=== PATIENT | female | born 1990 | race Caucasian/White ===

== ENCOUNTER → 2017-06-08 | Outpatient (CLI) | payer MEDICAID | END | disposition home or self-care (01) | LOC: CFH 15:46 | PROVIDERS: ATTEND Genetic Counselor, MS | DX: M25.551 Pain in right hip (principal) ==

== ENCOUNTER → 2018-10-20 | Outpatient (CLI) | payer MEDICAID | END | disposition home or self-care (01) | LOC: CFH 07:27 | PROVIDERS: ATTEND Nurse Practitioner | DX: M12.88 Other specific arthropathies, not elsewhere classified, other specified site (principal); M54.16 Radiculopathy, lumbar region | CPT/HCPCS: 72148 ==

== ENCOUNTER 2019-04-22 20:41 | Emergency (ER) | payer MEDICAID ==
[~2019-04-22] VITALS: Ht 160 cm; Wt 97.8 kg
[2019-04-22 20:43] VITALS: BP 138/80
[2019-04-22] MEDS ORDERED: ACETAMINOPHEN 325 MG TABLET PO ONE (21:30)
[2019-04-22] MEDS ORDERED: ACETAMINOPHEN 325 MG TABLET ONE (21:30)
== END 2019-04-22 21:58 | disposition home or self-care (01) ==
LOC: ED 21:09
DX: S80.12XA Contusion of left lower leg, initial encounter (principal); X58.XXXA Exposure to other specified factors, initial encounter; Y93.89 Activity, other specified; Y92.009 Unspecified place in unspecified non-institutional (private) residence as the place of occurrence of the external cause; Y99.8 Other external cause status
CPT/HCPCS: 99283

== ENCOUNTER 2021-01-20 13:25 | Outpatient (CLI) | payer MEDICAID ==
[~2021-01-20] VITALS: Ht 160 cm; Wt 98.0 kg
[2021-01-20 14:00] LABS: MICROSCOPIC NOT IND
== END 2021-01-20 15:00 | disposition home or self-care (01) ==
LOC: LDOP 13:25
PROVIDERS: ATTEND Student in an Organized Health Care Education/Training Program
DX: O26.892 Other specified pregnancy related conditions, second trimester (principal); R42 Dizziness and giddiness; F41.9 Anxiety disorder, unspecified; R53.1 Weakness; Z3A.22 22 weeks gestation of pregnancy
CPT/HCPCS: 76817; 81003; 87086; 99211; G0463

== ENCOUNTER 2021-01-20 15:03 | Emergency (ER) | payer MEDICAID ==
[~2021-01-20] VITALS: Ht 160 cm; Wt 98.0 kg
--- NOTE | 2021-01-20 15:33 | NUR ---
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
[2021-01-20 16:24] LABS: BASOPHILS % (AUTO) 1 % (0-1); EOSINOPHILS % (AUTO) 0 % (1-7); LYMPHOCYTES % (AUTO) 18 % (22-44); MEAN PLATELET VOLUME 8.7 fL (7.4-10.4); MONOCYTES % (AUTO) 5 % (2-9); NEUTROPHILS % (AUTO) 77 % (42-75); PLATELET COUNT 191 x10^3/uL (130-400); RED BLOOD COUNT 4.12 x10^6/uL (3.82-5.3)
[2021-01-20 16:32] LABS: ALANINE AMINOTRANSFERASE 18 U/L (12-78); ALBUMIN 2.7 g/dL (3.4-5.0); ANION GAP 10 mmol/L (5-15); CALCIUM 8.5 mg/dL (8.5-10.1); CHLORIDE 111 mmol/L (98-107); CREATININE 0.55 mg/dL (0.55-1.02); MD NO
[2021-01-20 16:37] LABS: ALKALINE PHOSPHATASE 88 U/L (45-117); BILIRUBIN,TOTAL 0.5 mg/dL (0.2-1.0); TOTAL PROTEIN 6.7 g/dL (6.4-8.2); TROPONIN I < 0.015 ng/mL (0.000-0.045)
[2021-01-20 17:23] VITALS: BP 128/73
== END 2021-01-20 17:25 | disposition home or self-care (01) ==
LOC: ED 17:10
DX: O26.899 Other specified pregnancy related conditions, unspecified trimester (principal); R42 Dizziness and giddiness; Z3A.00 Weeks of gestation of pregnancy not specified
CPT/HCPCS: 36415; 80053; 82962; 84484; 85025; 93005; 99284

== ENCOUNTER 2021-04-18 09:34 | Outpatient (CLI) | payer MEDICAID ==
[~2021-04-18] VITALS: Ht 160 cm; Wt 107.7 kg
[2021-04-18 10:29] VITALS: BP 126/82
[2021-04-18 10:34] LABS: BASOPHILS % (AUTO) 1 % (0-1); EOSINOPHILS % (AUTO) 0 % (1-7); LYMPHOCYTES % (AUTO) 16 % (22-44); MEAN CORPUSCULAR HEMOGLOBIN 31.4 pg (27.0-34.8); MEAN CORPUSCULAR HGB CONC 33.8 g/dL (32.4-35.8); MEAN PLATELET VOLUME 9.3 fL (7.4-10.4); MONOCYTES % (AUTO) 4 % (2-9); NEUTROPHILS % (AUTO) 80 % (42-75); PLATELET COUNT 162 x10^3/uL (130-400); RED BLOOD COUNT 4.15 x10^6/uL (3.82-5.3); RED CELL DISTRIBUTION WIDTH 15.3 % (9.6-15.2)
[2021-04-18 10:35] LABS: MD NO
[2021-04-18 10:43] LABS: ALANINE AMINOTRANSFERASE 14 U/L (12-78); ALBUMIN 2.4 g/dL (3.4-5.0); ANION GAP 6 mmol/L (5-15); BILIRUBIN, DIRECT 0.1 mg/dL (0.1-0.2); CALCIUM 8.5 mg/dL (8.5-10.1); CHLORIDE 108 mmol/L (98-107); CREATININE 0.57 mg/dL (0.55-1.02)
[2021-04-18 10:45] LABS: ALKALINE PHOSPHATASE 113 U/L (45-117); BILIRUBIN,TOTAL 0.7 mg/dL (0.2-1.0); TOTAL PROTEIN 6.5 g/dL (6.4-8.2)
[2021-04-18 11:05] LABS: TOTAL PROTEIN,URINE RANDOM < 5 mg/dL (0-12)
[2021-04-18 11:33] LABS: MICROSCOPIC INDICATED
== END 2021-04-18 13:50 | disposition home or self-care (01) ==
LOC: LDOP 09:34
PROVIDERS: ATTEND Student in an Organized Health Care Education/Training Program
DX: O16.3 Unspecified maternal hypertension, third trimester (principal); Z3A.35 35 weeks gestation of pregnancy
CPT/HCPCS: 36415; 59025; 76815; 80053; 81001; 82248; 82570; 84156; 84550; 85025

== ENCOUNTER 2021-04-23 08:46 | Outpatient (CLI) | payer MEDICAID ==
[2021-04-23 09:12] LABS: MICROSCOPIC INDICATED
[2021-04-23 09:29] LABS: BASOPHILS % (AUTO) 1 % (0-1); EOSINOPHILS % (AUTO) 0 % (1-7); LYMPHOCYTES % (AUTO) 17 % (22-44); MD NO; MEAN CORPUSCULAR HEMOGLOBIN 31.6 pg (27.0-34.8); MEAN CORPUSCULAR HGB CONC 34.4 g/dL (32.4-35.8); MEAN PLATELET VOLUME 9.6 fL (7.4-10.4); MONOCYTES % (AUTO) 5 % (2-9); NEUTROPHILS % (AUTO) 78 % (42-75); PLATELET COUNT 149 x10^3/uL (130-400); RED BLOOD COUNT 3.97 x10^6/uL (3.82-5.3); RED CELL DISTRIBUTION WIDTH 15.3 % (9.6-15.2)
[2021-04-23 09:39] LABS: ALBUMIN 2.3 g/dL (3.4-5.0); ANION GAP 7 mmol/L (5-15); CALCIUM 8.9 mg/dL (8.5-10.1); CHLORIDE 110 mmol/L (98-107)
[2021-04-23 09:48] LABS: ALANINE AMINOTRANSFERASE 18 U/L (12-78); ALKALINE PHOSPHATASE 113 U/L (45-117); BILIRUBIN, DIRECT 0.1 mg/dL (0.1-0.2); BILIRUBIN,TOTAL 0.7 mg/dL (0.2-1.0); CREATININE 0.62 mg/dL (0.55-1.02); TOTAL PROTEIN 6.4 g/dL (6.4-8.2)
[2021-04-23 10:56] LABS: CREATININE,URINE RANDOM < 13.00 mg/dL; TOTAL PROTEIN,URINE RANDOM < 5 mg/dL (0-12)
== END 2021-04-23 11:29 | disposition home or self-care (01) ==
LOC: LDOP 08:46
PROVIDERS: ATTEND Student in an Organized Health Care Education/Training Program
DX: O16.3 Unspecified maternal hypertension, third trimester (principal); Z3A.36 36 weeks gestation of pregnancy
CPT/HCPCS: 36415; 59025; 80053; 81001; 82248; 82570; 84156; 84550; 85025

== ENCOUNTER 2021-04-30 12:17 | Inpatient (IN) | payer MEDICAID ==
[~2021-04-30] VITALS: Ht 160 cm; Wt 108.2 kg
[2021-04-30 15:48] VITALS: BP 124/76
[2021-04-30] MEDS ORDERED: SODIUM CITRATE/CITRIC ACID 30 ML UDC PO ONE (16:00)
[2021-04-30] MEDS ORDERED: LACTATED RINGERS 1,000 ML IVBOLUS ONE (16:00)
[2021-04-30] MEDS ORDERED: LACTATED RINGERS 1,000 ML IV SCH (16:00)
[2021-04-30] MEDS ORDERED: METOCLOPRAMIDE 5 MG/ML, 2ML IV ONE (16:00)
[2021-04-30] MEDS ORDERED: CEFAZOLIN 1,000 MG ONE (16:26)
[2021-04-30] MEDS ORDERED: EPINEPHRINE 1 MG/ML, 1ML ONE (16:26)
[2021-04-30] MEDS ORDERED: OXYTOCIN 10 UNITS/ML, 1ML ONE (16:26)
[2021-04-30] MEDS ORDERED: EPHEDRINE 50 MG/ML, 1ML ONE (16:26)
[2021-04-30] MEDS ORDERED: FENTANYL PF 100 MCG/2ML ONE (16:27)
[2021-04-30] MEDS ORDERED: morphine SULFATE 10 MG/ML, 1ML IVPush PRN ×3 (16:30→20:00)
[2021-04-30] MEDS ORDERED: LABETALOL 5MG/ML, 20ML IV PRN ×2 (16:30→17:30)
[2021-04-30] MEDS ORDERED: ACETAMINOPHEN 325 MG TABLET PO PRN ×3 (16:30→20:00)
[2021-04-30] MEDS ORDERED: MEPERIDINE/PF 25MG/0.5ML IVPush PRN ×2 (16:30→17:30)
[2021-04-30] MEDS ORDERED: OXYcodone 5 MG/5 ML ORAL.SOL UDC PO PRN ×2 (16:30→17:30)
[2021-04-30] MEDS ORDERED: EPHEDRINE 50 MG/ML, 1ML IVPush PRN ×2 (16:30→17:30)
[2021-04-30] MEDS ORDERED: ONDANSETRON 2MG/ML, 2ML IVPush PRN ×2 (16:30→17:30)
[2021-04-30] MEDS ORDERED: FENTANYL PF 100 MCG/2ML IV PRN ×2 (16:30→17:30)
[2021-04-30 17:00] VITALS: BP 124/76
[2021-04-30] MEDS ORDERED: OXYTOCIN 30U/ 0.9% NaCL 500ML 500 ML ONE (17:07)
[2021-04-30] MEDS ORDERED: NEWBORN KIT ONE (17:07)
[2021-04-30] MEDS ORDERED: SODIUM CITRATE/CITRIC ACID 15 ML UDC ONE (17:08)
[2021-04-30 17:09] LABS: BASOPHILS % (AUTO) 0 % (0-1); EOSINOPHILS % (AUTO) 0 % (1-7); LYMPHOCYTES % (AUTO) 20 % (22-44); MEAN CORPUSCULAR HEMOGLOBIN 31.5 pg (27.0-34.8); MEAN CORPUSCULAR HGB CONC 34.1 g/dL (32.4-35.8); MONOCYTES % (AUTO) 5 % (2-9); NEUTROPHILS % (AUTO) 75 % (42-75); PLATELET COUNT 149 x10^3/uL (130-400); RED BLOOD COUNT 3.98 x10^6/uL (3.82-5.3); RED CELL DISTRIBUTION WIDTH 15.5 % (9.6-15.2)
[2021-04-30] MEDS: KETOROLAC 30 MG/1 ML IV SCH (19:30)
[2021-04-30] MEDS ORDERED: MISOPROSTOL 200 MCG TABLET PO PRN (20:00)
[2021-04-30] MEDS ORDERED: SIMETHICONE 80 MG CHEW TAB PO PRN (20:00)
[2021-04-30] MEDS ORDERED: BISACODYL 10 MG SUPP PR PRN (20:00)
[2021-04-30] MEDS ORDERED: IBUPROFEN 800 MG TABLET PO PRN (20:00)
[2021-04-30] MEDS ORDERED: OXYcodone/APAP 5/325MG TABLET PO PRN (20:00)
[2021-04-30] MEDS ORDERED: TRANEXAMIC ACID 1,000 MG in SODIUM CHLORIDE 0.9% 100 ML IVPB ONE (20:00)
[2021-04-30] MEDS ORDERED: METOCLOPRAMIDE 5 MG/ML, 2ML IV PRN (20:00)
[2021-04-30] MEDS ORDERED: ONDANSETRON 2MG/ML, 2ML IV PRN (20:00)
[2021-04-30] MEDS ORDERED: CARBOPROST TROMETHAMINE 250 MCG/ML, 1ML IM PRN (20:00)
[2021-04-30] MEDS ORDERED: GLYCERIN ADULT SUPP PR PRN (20:00)
[2021-04-30] MEDS: LACTATED RINGERS 1,000 ML IV SCH ×2 (20:00→20:28)
[2021-04-30] MEDS: OXYTOCIN 30U/ 0.9% NaCL 500ML 500 ML IV SCH (20:29)
[2021-04-30 21:15] VITALS: BP 145/88
[2021-05-01 01:00] VITALS: BP 138/84
[2021-05-01] MEDS: OXYcodone IR 5MG TABLET PO PRN ×4 (01:01→20:37)
[2021-05-01] MEDS: KETOROLAC 30 MG/1 ML IV SCH (01:55)
[2021-05-01 03:25] LABS: BASOPHILS % (AUTO) 0 % (0-1); EOSINOPHILS % (AUTO) 0 % (1-7); LYMPHOCYTES % (AUTO) 18 % (22-44); MEAN CORPUSCULAR HEMOGLOBIN 32.2 pg (27.0-34.8); MEAN CORPUSCULAR HGB CONC 34.5 g/dL (32.4-35.8); MEAN PLATELET VOLUME 9.5 fL (7.4-10.4); MONOCYTES % (AUTO) 5 % (2-9); NEUTROPHILS % (AUTO) 77 % (42-75); PLATELET COUNT 116 x10^3/uL (130-400); RED BLOOD COUNT 3.57 x10^6/uL (3.82-5.3); RED CELL DISTRIBUTION WIDTH 15.3 % (9.6-15.2)
[2021-05-01 03:37] LABS: ALANINE AMINOTRANSFERASE 20 U/L (12-78); ALBUMIN 1.8 g/dL (3.4-5.0); ANION GAP 10 mmol/L (5-15); CALCIUM 7.4 mg/dL (8.5-10.1); CHLORIDE 104 mmol/L (98-107); CREATININE 0.63 mg/dL (0.55-1.02)
[2021-05-01 03:39] LABS: ALKALINE PHOSPHATASE 101 U/L (45-117); BILIRUBIN,TOTAL 0.8 mg/dL (0.2-1.0); TOTAL PROTEIN 5.2 g/dL (6.4-8.2)
[2021-05-01] MEDS: LACTATED RINGERS 1,000 ML IV SCH ×2 (04:00→06:00)
[2021-05-01 05:00] VITALS: BP 129/82
[2021-05-01] MEDS: OXYTOCIN 30U/ 0.9% NaCL 500ML 500 ML IV SCH (06:00)
[2021-05-01] MEDS ORDERED: OXYC1TAB14 PO (06:01)
[2021-05-01] MEDS ORDERED: IBUP-1222 PO (06:01)
[2021-05-01 07:05] VITALS: BP 126/73
[2021-05-01] MEDS: IBUPROFEN 600 MG TABLET PO PRN ×3 (08:19→20:38)
[2021-05-01] MEDS: PRENATAL VIT/IRON/FA 1 EACH TABLET PO SCH (08:19)
[2021-05-01] MEDS: DOCUSATE 100 MG CAPSULE PO PRN ×2 (08:19→19:07)
[2021-05-01 11:45] VITALS: BP 121/78
[2021-05-01 16:25] VITALS: BP 138/87
[2021-05-01 19:05] VITALS: BP 137/83
[2021-05-02] MEDS: IBUPROFEN 600 MG TABLET PO PRN ×2 (02:44→10:44)
[2021-05-02] MEDS: OXYcodone IR 5MG TABLET PO PRN ×2 (02:44→12:56)
[2021-05-02 06:26] VITALS: BP 139/87
[2021-05-02] MEDS: DOCUSATE 100 MG CAPSULE PO PRN (07:31)
[2021-05-02] MEDS: PRENATAL VIT/IRON/FA 1 EACH TABLET PO SCH (07:31)
[2021-05-02 15:21] VITALS: BP 141/71
== END 2021-05-02 15:25 | disposition home or self-care (01) | DRG 788 ==
LOC: LDIP 15:22 → 2NW 21:00
PROVIDERS: ADMIT Student in an Organized Health Care Education/Training Program; ATTEND Student in an Organized Health Care Education/Training Program
PROC: 10D00Z1 Extraction of Products of Conception, Low, Open Approach (ICD-10-PCS; principal; 2021-04-30)
DX: O13.4 Gestational [pregnancy-induced] hypertension without significant proteinuria, complicating childbirth (principal); O34.211 Maternal care for low transverse scar from previous cesarean delivery; G43.909 Migraine, unspecified, not intractable, without status migrainosus; Z20.822 Contact with and (suspected) exposure to COVID-19; Z37.0 Single live birth; Z3A.37 37 weeks gestation of pregnancy; Z83.3 Family history of diabetes mellitus; Z88.0 Allergy status to penicillin
CPT/HCPCS: 36415; 80053; 85025; 86592; 86850; 86870; 86900; 86902; 86922; 86923; 87635; G0378; J0171; J0690; J1885; J3010; J2590; J2765; J7120

== ENCOUNTER 2021-08-21 22:31 | Emergency (ER) | payer MEDICAID | END 2021-08-21 23:20 | disposition home or self-care (01) | LOC: ED 22:31 | DX: K08.89 Other specified disorders of teeth and supporting structures (principal); L03.211 Cellulitis of face ==